=== PATIENT | male | born 1945 | race Caucasian/White ===

== ENCOUNTER 2024-04-27 16:46 | Inpatient (IN) | payer MEDICARE ==
[2024-04-27 17:35] LABS: #Eosinphils 0.71 10x3/uL (0.0-0.5); #Monocytes 0.69 10x3/uL (0.0-1.1); #Neutrophils 7.46 10x3/uL (1.5-8.4); %Lymphocytes 11.9 % (18.0-47.0); %Monocytes 6.8 % (0.0-10.0); Hematocrit 41.3 % (38.8-50.0); Hemoglobin 13.8 g/dL (13.5-17.5); Mean Corpuscular HGB CONC 33.4 g/dL (32.0-36.0); Mean Corpuscular Hemoglobin 30.5 pg (27.0-33.0); Mean Corpuscular Volume 91.2 fl (81.2-95.1); Mean Platelet Volume 10.4 fl (7.4-10.4); Platelet Count 212 10x3/uL (150-450); RBC Distribution Width 14.9 % (11.5-14.5); Red Blood Cell (RBC) Count 4.53 10x6/uL (4.32-5.72); White Blood Cell (WBC) Count 10.2 10x3/uL (3.5-10.5)
[2024-04-27] MEDS ORDERED: Ipratropium/Albuterol 3 ML NEB ONE (17:47)
[2024-04-27 17:49] LABS: ALT (SGPT) 35 U/L (8-55); AST (SGOT) 33 U/L (5-34); Albumin 4.5 g/dL (3.4-4.8); Alkaline Phosphatase 77 U/L (40-110); Anion Gap 19 mmol/L (10-20); BUN (Urea Nitrogen) 31 mg/dL (8.4-25.7); Calc. Creatinine Clearance 0 mL/min (70-130); Carbon Dioxide 22 mmol/L (23-31); Chloride 103 mmol/L (98-107); Estimated GFR 46; Globulin 2.9 g/dL (2.4-3.5); Glucose 140 mg/dL (83-110); Potassium 3.6 mmol/L (3.5-5.1); Protein, Total 7.4 g/dL (5.8-8.1); Sodium 140 mmol/L (136-145)
[2024-04-27 17:50] LABS: Troponin I 0.085 ng/mL (< 0.028)
[2024-04-27 17:51] LABS: INR-International Normal Ratio 1.2; Prothrombin Time 12.5 sec (9.5-12.1)
[2024-04-27 18:16] LABS: Influenza A by NAA Not Detected (NotDetected); Influenza B by NAA Not Detected (NotDetected); SARS-CoV-2 NAA Rapid Test Not Detected (NotDetected)
[2024-04-27] MEDS ORDERED: Potassium Chloride 20 MEQ TAB ONE (18:42)
[2024-04-27] MEDS ORDERED: Furosemide 40 MG (4 mL) VIAL ONE (18:42)
[2024-04-27] MEDS ORDERED: Senokot S 8.6-50 MG TAB PO PRN (19:26)
[2024-04-27] MEDS ORDERED: Acetaminophen 325 MG TAB PO PRN (19:26)
[2024-04-27] MEDS ORDERED: HYDROcodone/Acetaminophen 5/325 mg Tablet PO PRN (19:26)
[2024-04-27] MEDS ORDERED: Calcium Carbonate 500 MG ChewTAB PO PRN (19:26)
[2024-04-27] MEDS ORDERED: Guaifenesin DM 100-10/5 ML UDCUP PO PRN (19:26)
[2024-04-27] MEDS ORDERED: Ondansetron PF 4 MG/2 ML Vial IVP PRN (19:26)
[2024-04-27] MEDS ORDERED: Albuterol 2.5 MG (3 mL) NEB NEB PRN (19:30)
[2024-04-27] MEDS: Rosuvastatin 20 MG TAB PO SCH (20:55)
[2024-04-27 21:36] LABS: Troponin I 0.102 ng/mL (< 0.028)
[2024-04-27 21:55] VITALS: BMI 25.5
[2024-04-27] MEDS: Ventolin HFA Inhaler 60 PUFF INHALER INH SCH (22:35)
[2024-04-28 00:21] LABS: Troponin I 0.119 ng/mL (< 0.028)
[2024-04-28 03:56] LABS: Anion Gap 14 mmol/L (10-20); BUN (Urea Nitrogen) 27 mg/dL (8.4-25.7); Calc. Creatinine Clearance 47 mL/min (70-130); Calcium 9.9 mg/dL (7.8-10.44); Carbon Dioxide 27 mmol/L (23-31); Chloride 104 mmol/L (98-107); Estimated GFR 53; Glucose 121 mg/dL (83-110); Magnesium 2.3 mg/dL (1.6-2.6); Potassium 3.2 mmol/L (3.5-5.1); Sodium 142 mmol/L (136-145)
[2024-04-28 04:11] LABS: Troponin I 0.133 ng/mL (< 0.028)
[2024-04-28] MEDS: Potassium Chloride 20 MEQ TAB PO SCH ×2 (05:21→17:22)
[2024-04-28] MEDS ORDERED: Atenolol 25 MG TAB PO SCH ×2 (09:00)
[2024-04-28] MEDS: Amlodipine 5 MG TAB PO SCH (09:24)
[2024-04-28] MEDS: Furosemide 40 MG TAB PO SCH (09:25)
[2024-04-28] MEDS: Potassium Chloride 10 MEQ TAB PO SCH (09:25)
[2024-04-28] MEDS: Allopurinol 300 MG TAB PO SCH (09:25)
[2024-04-28] MEDS ORDERED: Rivaroxaban 10 MG TAB PO SCH (12:00)
[2024-04-28] MEDS: Rivaroxaban 10 MG TAB PO SCH (13:04)
[2024-04-28 16:25] LABS: Anion Gap 12 mmol/L (10-20); BUN (Urea Nitrogen) 27 mg/dL (8.4-25.7); Calc. Creatinine Clearance 46 mL/min (70-130); Calcium 9.7 mg/dL (7.8-10.44); Carbon Dioxide 32 mmol/L (23-31); Chloride 102 mmol/L (98-107); Estimated GFR 51; Glucose 100 mg/dL (83-110); Potassium 3.6 mmol/L (3.5-5.1); Sodium 142 mmol/L (136-145)
[2024-04-28] MEDS: Benzonatate 100 MG CAP PO PRN (17:22)
[2024-04-28] MEDS: Magnesium 2 GM/50 ML(in water) 2 GM in Premix 1 BAG IVPB SCH (17:22)
[2024-04-28] MEDS: Rosuvastatin 20 MG TAB PO SCH (21:35)
[2024-04-29] MEDS ORDERED: Furosemide 40 MG TAB PO SCH (07:30)
[2024-04-29] MEDS ORDERED: Rivaroxaban 10 MG TAB PO SCH (09:00)
[2024-04-29 11:28] LABS: Anion Gap 15 mmol/L (10-20); BUN (Urea Nitrogen) 25 mg/dL (8.4-25.7); Calc. Creatinine Clearance 50 mL/min (70-130); Carbon Dioxide 28 mmol/L (23-31); Chloride 103 mmol/L (98-107); Estimated GFR 56; Glucose 107 mg/dL (83-110); Magnesium 2.4 mg/dL (1.6-2.6); Potassium 3.7 mmol/L (3.5-5.1); Sodium 142 mmol/L (136-145)
[2024-04-29] MEDS: Rosuvastatin 20 MG TAB PO SCH (21:19)
[2024-04-30 04:09] LABS: Anion Gap 15 mmol/L (10-20); BUN (Urea Nitrogen) 27 mg/dL (8.4-25.7); Calc. Creatinine Clearance 50 mL/min (70-130); Calcium 9.4 mg/dL (7.8-10.44); Carbon Dioxide 27 mmol/L (23-31); Chloride 103 mmol/L (98-107); Estimated GFR 56; Glucose 96 mg/dL (83-110); Potassium 3.6 mmol/L (3.5-5.1); Sodium 141 mmol/L (136-145)
[2024-04-30] MEDS ORDERED: Heparin 10,000 UNITS/ 10 ML VIAL ONE (07:12)
[2024-04-30] MEDS ORDERED: Iopamidol 300 61% 100 ML VIAL FS ONE (09:46)
[2024-04-30] MEDS ORDERED: Lidocaine 1% (PF) 30 ML VIAL ONE (10:05)
[2024-04-30] MEDS ORDERED: Midazolam HCl 2 mg/2 ml Vial ONE (10:06)
[2024-04-30] MEDS ORDERED: fentaNYL 50 mcg/mL 1 mL Vial ONE (10:06)
[2024-04-30] MEDS ORDERED: Nitroglycerin 0.4 MG TAB (25 Tab Bottle) SL PRN (10:49)
[2024-04-30] MEDS ORDERED: Acetaminophen/Codeine 30-300mg Tablet PO PRN ×2 (10:49)
[2024-04-30] MEDS ORDERED: Sodium Chloride 0.9% 200 ML IV PRN (10:49)
[2024-04-30] MEDS: Sodium Chloride 0.9% 1,000 ML IV SCH (11:00)
[2024-04-30] MEDS: Potassium Chloride 20 MEQ TAB PO SCH (12:07)
[2024-04-30 16:17] VITALS: BP 130/56; TEMP 98.5
[2024-05-01] MEDS ORDERED: Rivaroxaban 15 MG TAB PO SCH (09:00)
== END 2024-04-30 18:45 | disposition home or self-care (01) | DRG 280 ==
LOC: CSHERS 16:46 → CSHTELE 18:19 → UNDOADMIN 18:19 → CSHTELE 04-28 08:05
PROVIDERS: ADMIT Internal Medicine; ATTEND Internal Medicine
PROC: 4A023N7 Measurement of Cardiac Sampling and Pressure, Left Heart, Percutaneous Approach (ICD-10-PCS; principal; 2024-04-30)
PROC: B211YZZ Fluoroscopy of Multiple Coronary Arteries using Other Contrast (ICD-10-PCS; 2024-04-30)
PROC: B215YZZ Fluoroscopy of Left Heart using Other Contrast (ICD-10-PCS; 2024-04-30)
DX: I13.0 Hypertensive heart and chronic kidney disease with heart failure and stage 1 through stage 4 chronic kidney disease, or unspecified chronic kidney disease (principal); I50.33 Acute on chronic diastolic (congestive) heart failure; I21.4 Non-ST elevation (NSTEMI) myocardial infarction; I48.11 Longstanding persistent atrial fibrillation; I48.20 Chronic atrial fibrillation, unspecified; I25.10 Atherosclerotic heart disease of native coronary artery without angina pectoris; E78.5 Hyperlipidemia, unspecified; N18.30 Chronic kidney disease, stage 3 unspecified; J98.9 Respiratory disorder, unspecified; R79.89 Other specified abnormal findings of blood chemistry; E87.6 Hypokalemia; J98.01 Acute bronchospasm; N40.0 Benign prostatic hyperplasia without lower urinary tract symptoms; N28.89 Other specified disorders of kidney and ureter; Z79.899 Other long term (current) drug therapy
CPT/HCPCS: 36252; 36415; 71045; 80048; 80053; 83605; 83735; 83880; 84443; 84484; 85025; 85610; 85730; 86140; 93005; 93010; 93306; 93458; 94640; 94664; 94762; 96374; 99152; C1760; C1769; J1644; J1940; J2001; J2250; J3010; J3475; J7050; J7620; Q9967